=== PATIENT | male | born 1980 | race Caucasian/White ===

== ENCOUNTER 2020-02-21 17:12 | Emergency (ER) | payer SELFPAY ==
[2020-02-21 17:25] VITALS: BP 114/85; PULSE 102; TEMP 97.5; BMI 37.3
[2020-02-21] MEDS ORDERED: SODIUM CHLORIDE 1,000 ML IV STA (18:11)
[2020-02-21] MEDS ORDERED: KETOROLAC TROMETHAMINE 60 MG/2 ML VIAL IM ONE (18:11)
[2020-02-21] MEDS ORDERED: TAMSULOSIN HCL 0.4 MG CAP PO ONE (18:13)
[2020-02-21] MEDS ORDERED: KETOROLAC TROMETHAMINE 30 MG/1 ML VIAL IVPUSH ONE (18:20)
[2020-02-21] MEDS ORDERED: TAMSULOSIN HCL 0.4 MG CAP ONE (18:29)
[2020-02-21] MEDS ORDERED: KETOROLAC TROMETHAMINE 30 MG/1 ML VIAL ONE (18:29)
[2020-02-21 18:54] LABS: BASO % 0.3 % (0-2.0); EOS % 0.1 % (0-4.5); HEMATOCRIT 48.8 % (35.4-49); HEMOGLOBIN 16.2 GM/dL (11.7-16.9); LYMPH % 6.6 % (8-40); MCH 30.5 pg (25.7-33.7); MCHC 33.2 g/dl (32.0-35.9); MEAN CELL VOLUME 91.8 fl (80-96); MEAN PLT VOLUME 9.4 fl (7.5-11.1); MONO % 7.8 % (3.8-10.2); NEUT % 85.2 % (42.8-82.8); PLATELET COUNT 301 K/MM3 (134-434); RBC 5.32 M/mm3 (4.00-5.60); RDW 13.3 % (11.9-15.9)
[2020-02-21 19:18] LABS: POTASSIUM 4.1 mmol/L (3.5-5.1)
[2020-02-21 19:20] LABS: ALBUMIN 3.8 g/dl (3.4-5.0); CALCIUM 9.7 mg/dL (8.5-10.1)
[2020-02-21 19:25] LABS: BILIRUBIN,TOTAL 0.8 mg/dL (0.2-1); TOT PROT 7.7 g/dl (6.4-8.2)
[2020-02-21 20:18] LABS: ANISOCYTOSIS 0; MACROCYTOSIS 0; PLATELET ESTIMATE NORMAL
[2020-02-21] MEDS ORDERED: CEFAZOLIN 1 GM in DEXTROSE 5%-WATER - 50 ML IVPB ONE (20:18)
[2020-02-21] MEDS ORDERED: FAMOTIDINE 20 MG/50 ML IVPB 20 MG/50 ML MG IVPB ONE ×2 (20:18→21:08)
[2020-02-21] MEDS ORDERED: ACETAMINOPHEN 1000 MG/100 ML VIAL (NON FORMULARY) IVPB ONE (20:18)
[2020-02-21] MEDS ORDERED: PIPERACILLIN/TAZOB 3.375 GM 3.375 GM in DEXTROSE 5%-WATER - 50 ML IVPB ONE (20:33)
[2020-02-21 20:53] LABS: URINE APPEARANCE CLEAR; URINE BILIRUBIN NEGATIVE (NEGATIVE); URINE COLOR YELLOW; URINE GLUCOSE (UA) NEGATIVE (NEGATIVE); URINE KETONE NEGATIVE (NEGATIVE); URINE LEUK ESTERASE NEGATIVE (NEGATIVE); URINE NITRITE NEGATIVE (NEGATIVE); URINE PROTEIN NEGATIVE (NEGATIVE)
[2020-02-21] MEDS ORDERED: ACETAMINOPHEN INJECTION 100 ML IVPB ONE (21:07)
[2020-02-21] MEDS ORDERED: PIPERACILLIN/TAZOB 3.375 GM 3.375 GM/50 ML BAG IVPB ONE (21:07)
== END 2020-02-21 23:30 | disposition home or self-care (01) ==
LOC: JER 17:12
PROC: 3E0337Z Introduction of Electrolytic and Water Balance Substance into Peripheral Vein, Percutaneous Approach (ICD-10-PCS; principal; 2020-02-21)
PROC: 3E033GC Introduction of Other Therapeutic Substance into Peripheral Vein, Percutaneous Approach (ICD-10-PCS; principal; 2020-02-21)
DX: K57.92 Diverticulitis of intestine, part unspecified, without perforation or abscess without bleeding (principal)
CPT/HCPCS: 36415; 74176-TC; 80053; 81003; 83690; 85025; 87086; 87491; 87591; 96365; 96367; 96375; 99285-25; J0131

== ENCOUNTER 2021-05-03 04:42 | Inpatient (IN) | payer OTHER ==
[2021-05-02 12:09] VITALS: BMI 44.6
[2021-05-03] MEDS ORDERED: ERTAPENEM SODIUM 1 GM in SODIUM CHLORIDE 50 ML IVPB ONE (10:00)
[2021-05-03] MEDS ORDERED: ALVIMOPAN 12 MG CAP PO ONE (10:00)
[2021-05-03] MEDS ORDERED: BUPIVACAINE HCL/PF 0.5% (5MG/ML) 10 ML VIAL ONE (10:28)
[2021-05-03] MEDS ORDERED: BUPIVACAINE LIPOSOME/PF (EXPAREL) 266 MG/20 ML VIAL ONE (10:28)
[2021-05-03] MEDS ORDERED: MIDAZOLAM HCL 2 MG/2 ML SINGLE DOSE VIAL ONE ×2 (10:29)
[2021-05-03] MEDS ORDERED: LIDOCAINE HCL/PF 2% SDV 5ML VIAL ONE ×2 (11:43→15:32)
[2021-05-03] MEDS ORDERED: PROPOFOL 20 ML ONE ×2 (11:43)
[2021-05-03] MEDS ORDERED: ROCURONIUM BROMIDE 50 MG/5 ML SYRINGE ONE ×3 (11:43→15:11)
[2021-05-03] MEDS ORDERED: ERTAPENEM SODIUM 1 GM VIAL IVPB ONE (12:15)
[2021-05-03] MEDS ORDERED: SODIUM CHLORIDE 0.9% P/F 10 ML VIAL IJ ONE (13:17)
[2021-05-03] MEDS ORDERED: METOPROLOL TARTRATE 5 MG/5 ML VIAL ONE ×2 (15:41→17:12)
[2021-05-03] MEDS ORDERED: ESMOLOL HCL 100,000 MCG/10 ML VIAL ONE (15:41)
[2021-05-03] MEDS ORDERED: HYDROmorphone HCl 2 MG/ML VIAL ONE ×2 (15:41→17:13)
[2021-05-03] MEDS ORDERED: ONDANSETRON 4 MG/2 ML VIAL IVPUSH PRN (16:22)
[2021-05-03] MEDS ORDERED: HYDROmorphone HCl 2 MG/ML VIAL IVPUSH PRN ×2 (16:22→16:24)
[2021-05-03] MEDS ORDERED: LACTATED RINGERS SOLUTION 1,000 ML IV SCH (16:30)
[2021-05-03] MEDS ORDERED: DESFLURANE GAS 240 ML BOTTLE IH ONE (16:58)
[2021-05-03] MEDS ORDERED: HYDROmorphone *PCA* 10MG/50ML DISP.SYRIN ONE (18:03)
[2021-05-03] MEDS: ACETAMINOPHEN 1000 MG/100 ML BAG IVPB SCH (18:35)
[2021-05-03] MEDS ORDERED: ACETAMINOPHEN INJECTION 100 ML IVPB ONE (18:47)
[2021-05-03 18:48] LABS: BASO % 0.2 % (0-2.0); HEMATOCRIT 47.1 % (35.4-49); HEMOGLOBIN 15.6 GM/dL (11.7-16.9); LYMPH % 10.3 % (8-40); MCH 30.2 pg (25.7-33.7); MCHC 33.2 g/dl (32.0-35.9); MEAN CELL VOLUME 90.8 fl (80-96); MEAN PLT VOLUME 9.2 fl (7.5-11.1); MONO % 8.2 % (3.8-10.2); NEUT % 81.3 % (42.8-82.8); PLATELET COUNT 260 10^3/uL (134-434); RBC 5.18 M/mm3 (4.00-5.60); WHITE BLOOD COUNT 17.3 K/mm3 (4.0-10.0)
[2021-05-03 19:04] LABS: CALCIUM 8.2 mg/dL (8.5-10.1)
[2021-05-03 19:05] LABS: BLOOD UREA NITROGEN 15.8 mg/dL (7-18)
[2021-05-03 19:08] LABS: CREATININE 1.2 mg/dL (0.55-1.3)
[2021-05-03 19:10] LABS: BILIRUBIN,TOTAL 0.9 mg/dL (0.2-1); TOT PROT 6.1 g/dl (6.4-8.2)
[2021-05-03] MEDS: LACTATED RINGERS SOLUTION 1,000 ML IV SCH (19:45)
[2021-05-03] MEDS ORDERED: HEPARIN NA (PORCINE) 5,000 UNITS/ML 1ML VIAL SQ SCH (22:00)
[2021-05-03] MEDS ORDERED: INSULIN SLIDING SCALE (NOVOLOG) 1 VIAL SQ SCH (22:00)
[2021-05-03] MEDS: HYDROmorphone *PCA* 10MG/50ML DISP.SYRIN PCA SCH (22:22)
[2021-05-03] MEDS: INSULIN SLIDING SCALE (NOVOLOG) 1 VIAL SQ SCH (22:23)
[2021-05-04] MEDS ORDERED: HYDROCHLOROTHIAZIDE 12.5 MG CAPSULE (FP) PO ONE (02:26)
[2021-05-04] MEDS: LACTATED RINGERS SOLUTION 1,000 ML IV SCH ×2 (03:45→20:25)
[2021-05-04] MEDS: ACETAMINOPHEN 1000 MG/100 ML BAG IVPB SCH ×4 (06:02→23:21)
[2021-05-04] MEDS: INSULIN SLIDING SCALE (NOVOLOG) 1 VIAL SQ SCH ×4 (06:37→21:32)
[2021-05-04] MEDS: ALVIMOPAN 12 MG CAP PO SCH ×2 (06:37→19:43)
[2021-05-04] MEDS ORDERED: metFORMIN HCL 500 MG TABLET (FP) PO SCH (07:00)
[2021-05-04 07:20] LABS: BASO % 0.3 % (0-2.0); EOS % 0.1 % (0-4.5); HEMATOCRIT 46.8 % (35.4-49); HEMOGLOBIN 15.3 GM/dL (11.7-16.9); LYMPH % 20.3 % (8-40); MCH 29.9 pg (25.7-33.7); MCHC 32.6 g/dl (32.0-35.9); MEAN CELL VOLUME 91.7 fl (80-96); MEAN PLT VOLUME 9.7 fl (7.5-11.1); MONO % 7.9 % (3.8-10.2); NEUT % 71.4 % (42.8-82.8); PLATELET COUNT 246 10^3/uL (134-434); RDW 14.3 % (11.9-15.9); WHITE BLOOD COUNT 13.9 K/mm3 (4.0-10.0)
[2021-05-04 07:23] LABS: CALCIUM 8.6 mg/dL (8.5-10.1); MAGNESIUM 1.8 mg/dL (1.8-2.4)
[2021-05-04 07:24] LABS: BLOOD UREA NITROGEN 15.8 mg/dL (7-18)
[2021-05-04 07:27] LABS: PHOSPHOROUS 4.5 mg/dL (2.5-4.9)
[2021-05-04 07:29] LABS: CREATININE 1.5 mg/dL (0.55-1.3)
[2021-05-04 07:39] LABS: BILIRUBIN,TOTAL 1.3 mg/dL (0.2-1)
[2021-05-04] MEDS: HYDROCHLOROTHIAZIDE 12.5 MG CAPSULE (FP) PO SCH (09:37)
[2021-05-04] MEDS: metoPROLOL SUCCINATE 25 MG TAB.SR.24H (FP) PO SCH (09:37)
[2021-05-04] MEDS: LOSARTAN POTASSIUM 50 MG TABLET PO SCH (09:37)
[2021-05-04] MEDS: HEPARIN NA (PORCINE) 5,000 UNITS/ML 1ML VIAL SQ SCH ×3 (09:37→21:17)
[2021-05-04] MEDS ORDERED: LOSARTAN 50MG/HCTZ 12.5MG 1 TAB PO SCH ×2 (10:00)
[2021-05-04] MEDS ORDERED: ENOXAPARIN NA (PORCINE) 40 MG/0.4 ML DISP.SYRIN SQ SCH (10:00)
[2021-05-04] MEDS ORDERED: cefTRIAXone SODIUM 1 GM VIAL ONE (10:25)
[2021-05-04] MEDS ORDERED: DEXTROSE 5%-WATER - 50 ML IVPB ONE (10:25)
[2021-05-04] MEDS: HYDROmorphone *PCA* 10MG/50ML DISP.SYRIN PCA SCH (10:28)
[2021-05-04] MEDS: CEFTRIAXONE 1 GM in DEXTROSE 5%-WATER - 50 ML IVPB SCH (10:30)
[2021-05-04] MEDS: metroNIDAZOLE 250 MG TABLET PO SCH ×2 (14:41→21:16)
[2021-05-05] MEDS: ACETAMINOPHEN 1000 MG/100 ML BAG IVPB SCH ×3 (05:01→17:29)
[2021-05-05] MEDS: HEPARIN NA (PORCINE) 5,000 UNITS/ML 1ML VIAL SQ SCH ×3 (05:01→21:41)
[2021-05-05] MEDS: metroNIDAZOLE 500 MG TABLET PO SCH ×3 (05:43→21:41)
[2021-05-05] MEDS: INSULIN SLIDING SCALE (NOVOLOG) 1 VIAL SQ SCH ×4 (06:09→21:47)
[2021-05-05 07:19] LABS: HEMATOCRIT 42.7 % (35.4-49); HEMOGLOBIN 14.9 GM/dL (11.7-16.9); MCH 31.6 pg (25.7-33.7); MCHC 34.8 g/dl (32.0-35.9); MEAN CELL VOLUME 90.8 fl (80-96); MEAN PLT VOLUME 9.4 fl (7.5-11.1); PLATELET COUNT 221 10^3/uL (134-434); RDW 13.7 % (11.9-15.9); WHITE BLOOD COUNT 16.8 K/mm3 (4.0-10.0)
[2021-05-05 08:09] LABS: BLOOD UREA NITROGEN 13.8 mg/dL (7-18); MAGNESIUM 1.7 mg/dL (1.8-2.4)
[2021-05-05 08:12] LABS: CREATININE 1.6 mg/dL (0.55-1.3); PHOSPHOROUS 2.9 mg/dL (2.5-4.9)
[2021-05-05] MEDS: HYDROmorphone *PCA* 10MG/50ML DISP.SYRIN PCA SCH ×3 (08:12→19:12)
[2021-05-05] MEDS ORDERED: cefTRIAXone SODIUM 1 GM VIAL ONE (08:20)
[2021-05-05] MEDS ORDERED: DEXTROSE 5%-WATER - 50 ML IVPB ONE (08:20)
[2021-05-05] MEDS: ALVIMOPAN 12 MG CAP PO SCH ×3 (08:31→19:08)
[2021-05-05] MEDS ORDERED: LACTATED RINGERS SOLUTION 1,000 ML IV SCH ×2 (08:50→18:56)
[2021-05-05] MEDS: CEFTRIAXONE 1 GM in DEXTROSE 5%-WATER - 50 ML IVPB SCH (09:00)
[2021-05-05] MEDS: metoPROLOL SUCCINATE 25 MG TAB.SR.24H (FP) PO SCH (09:00)
[2021-05-05] MEDS: HYDROCHLOROTHIAZIDE 12.5 MG CAPSULE (FP) PO SCH (09:00)
[2021-05-05] MEDS ORDERED: MAGNESIUM OXIDE 400 MG TABLET (FP) PO ONE (09:00)
[2021-05-05] MEDS: LOSARTAN POTASSIUM 50 MG TABLET PO SCH (09:00)
[2021-05-05] MEDS ORDERED: SODIUM CHLORIDE 1,000 ML IV SCH (10:00)
[2021-05-05] MEDS ORDERED: ACETAMINOPHEN 500 MG TABLET (FP) PO PRN (18:53)
[2021-05-05] MEDS ORDERED: traMADol HCL 50 MG TABLET PO PRN (18:54)
[2021-05-05] MEDS: SODIUM CHLORIDE 1,000 ML IV SCH (19:38)
[2021-05-05] MEDS ORDERED: INSULIN (NOVOLOG) ASPART 100 UNITS/ML 10ML VIAL ONE (21:01)
[2021-05-06] MEDS ORDERED: MELATONIN 5 MG TABLETS PO ONE (03:04)
[2021-05-06] MEDS: HEPARIN NA (PORCINE) 5,000 UNITS/ML 1ML VIAL SQ SCH ×3 (05:42→21:49)
[2021-05-06] MEDS: metroNIDAZOLE 500 MG TABLET PO SCH ×2 (05:42→16:51)
[2021-05-06] MEDS: SODIUM CHLORIDE 1,000 ML IV SCH ×2 (05:52→20:05)
[2021-05-06] MEDS: ALVIMOPAN 12 MG CAP PO SCH (06:09)
[2021-05-06] MEDS: INSULIN SLIDING SCALE (NOVOLOG) 1 VIAL SQ SCH ×4 (06:09→21:31)
[2021-05-06] MEDS ORDERED: cefTRIAXone SODIUM 1 GM VIAL ONE (09:31)
[2021-05-06] MEDS ORDERED: DEXTROSE 5%-WATER - 50 ML IVPB ONE (09:31)
[2021-05-06 09:33] LABS: BASO % 0.6 % (0-2.0); HEMOGLOBIN 14.3 GM/dL (11.7-16.9); LYMPH % 13.9 % (8-40); MCH 30.8 pg (25.7-33.7); MCHC 34.1 g/dl (32.0-35.9); MEAN CELL VOLUME 90.5 fl (80-96); MEAN PLT VOLUME 9.4 fl (7.5-11.1); MONO % 8.5 % (3.8-10.2); PLATELET COUNT 245 10^3/uL (134-434); RBC 4.65 M/mm3 (4.00-5.60); RDW 13.9 % (11.9-15.9); WHITE BLOOD COUNT 18.6 K/mm3 (4.0-10.0)
[2021-05-06 09:48] LABS: CALCIUM 9.1 mg/dL (8.5-10.1)
[2021-05-06 09:49] LABS: BLOOD UREA NITROGEN 15.7 mg/dL (7-18)
[2021-05-06 09:52] LABS: CREATININE 1.5 mg/dL (0.55-1.3)
[2021-05-06] MEDS ORDERED: LOSARTAN POTASSIUM 50 MG TABLET PO SCH (10:00)
[2021-05-06] MEDS ORDERED: CEFTRIAXONE 1 GM in DEXTROSE 5%-WATER - 50 ML IVPB SCH (10:00)
[2021-05-06] MEDS ORDERED: metoPROLOL SUCCINATE 25 MG TAB.SR.24H (FP) PO SCH (10:00)
[2021-05-06] MEDS ORDERED: LOSARTAN 50MG/HCTZ 12.5MG 1 TAB PO SCH (10:00)
[2021-05-06] MEDS ORDERED: metroNIDAZOLE 250 MG TABLET PO SCH ×3 (14:59→22:00)
[2021-05-06] MEDS ORDERED: ROCURONIUM BROMIDE 50 MG/5 ML SYRINGE ONE (16:41)
[2021-05-06] MEDS ORDERED: SUCCINYLCHOLINE CHLORIDE 200 MG/10 ML SYRINGE ONE (16:42)
[2021-05-06] MEDS ORDERED: PROPOFOL 20 ML ONE ×2 (16:42→16:43)
[2021-05-06] MEDS ORDERED: MIDAZOLAM HCL 2 MG/2 ML SINGLE DOSE VIAL ONE (16:42)
[2021-05-06] MEDS ORDERED: CEFOXITIN SODIUM 2 GM IVPB ONE (17:09)
[2021-05-06] MEDS ORDERED: cefOXitin SODIUM 1 GM VIAL (RESTRICTED TO ID) IVPB ONE (17:12)
[2021-05-06] MEDS ORDERED: NEOSTIGMINE METHYLSULFATE 0.5 MG/ML - 10 ML MDV ONE (17:33)
[2021-05-06] MEDS ORDERED: LIDOCAINE HCL/PF 2% SDV 5ML VIAL ONE (17:33)
[2021-05-06] MEDS ORDERED: LIDOCAINE HCL 2% (20ML MULTI-DOSE VIAL) ONE (17:34)
[2021-05-06] MEDS ORDERED: BUPIVACAINE HCL/PF 0.25% (2.5MG/ML) 10 ML VIAL ONE (18:01)
[2021-05-06] MEDS ORDERED: ACETAMINOPHEN 1000 MG/100 ML BAG IVPB PRN (18:32)
[2021-05-06] MEDS ORDERED: ONDANSETRON 4 MG/2 ML VIAL IVPUSH PRN (18:32)
[2021-05-06] MEDS ORDERED: ACETAMINOPHEN 500 MG TABLET (FP) PO PRN (18:32)
[2021-05-06] MEDS ORDERED: traMADol HCL 50 MG TABLET PO PRN (18:32)
[2021-05-06] MEDS ORDERED: LACTATED RINGERS SOLUTION 1,000 ML IV SCH (18:45)
[2021-05-06] MEDS ORDERED: ACETAMINOPHEN INJECTION 100 ML IVPB ONE (19:03)
[2021-05-06] MEDS ORDERED: ACETAMINOPHEN 1000 MG/100 ML BAG IVPB ONE (19:05)
[2021-05-06] MEDS: morphine SULFATE 4 MG/ML VIAL IVPUSH PRN (22:05)
[2021-05-07] MEDS: ACETAMINOPHEN 1000 MG/100 ML BAG IVPB SCH ×3 (00:11→13:35)
[2021-05-07] MEDS: morphine SULFATE 4 MG/ML VIAL IVPUSH PRN ×4 (02:37→19:19)
[2021-05-07] MEDS ORDERED: MELATONIN 5 MG TABLETS PO ONE (04:16)
[2021-05-07] MEDS: SODIUM CHLORIDE 1,000 ML IV SCH ×2 (05:59→18:06)
[2021-05-07] MEDS: HEPARIN NA (PORCINE) 5,000 UNITS/ML 1ML VIAL SQ SCH ×3 (06:00→22:06)
[2021-05-07] MEDS: INSULIN SLIDING SCALE (NOVOLOG) 1 VIAL SQ SCH ×4 (06:04→22:05)
[2021-05-07 09:04] LABS: BASO % 0.4 % (0-2.0); EOS % 0.2 % (0-4.5); HEMATOCRIT 40.5 % (35.4-49); HEMOGLOBIN 13.6 GM/dL (11.7-16.9); LYMPH % 13.7 % (8-40); MCH 30.8 pg (25.7-33.7); MCHC 33.6 g/dl (32.0-35.9); MEAN CELL VOLUME 91.6 fl (80-96); MEAN PLT VOLUME 8.9 fl (7.5-11.1); NEUT % 74.7 % (42.8-82.8); PLATELET COUNT 309 10^3/uL (134-434); RBC 4.42 M/mm3 (4.00-5.60); RDW 13.8 % (11.9-15.9); WHITE BLOOD COUNT 16.5 K/mm3 (4.0-10.0)
[2021-05-07 09:29] LABS: ALBUMIN 2.5 g/dl (3.4-5.0)
[2021-05-07 09:30] LABS: BLOOD UREA NITROGEN 19.9 mg/dL (7-18)
[2021-05-07 09:32] LABS: CREATININE 1.7 mg/dL (0.55-1.3)
[2021-05-07 09:33] LABS: TOT PROT 6.2 g/dl (6.4-8.2)
[2021-05-07 09:34] LABS: BILIRUBIN,TOTAL 1.2 mg/dL (0.2-1)
[2021-05-07] MEDS: metoPROLOL SUCCINATE 25 MG TAB.SR.24H (FP) PO SCH (11:10)
[2021-05-07] MEDS: LOSARTAN 50MG/HCTZ 12.5MG 1 TAB PO SCH (11:10)
[2021-05-08] MEDS: morphine SULFATE 4 MG/ML VIAL IVPUSH PRN ×2 (01:40→10:35)
[2021-05-08] MEDS: MELATONIN 5 MG TABLETS PO PRN (01:41)
[2021-05-08] MEDS: HEPARIN NA (PORCINE) 5,000 UNITS/ML 1ML VIAL SQ SCH ×3 (05:50→21:30)
[2021-05-08] MEDS: INSULIN SLIDING SCALE (NOVOLOG) 1 VIAL SQ SCH ×4 (06:09→21:29)
[2021-05-08 09:07] LABS: BASO % 0.8 % (0-2.0); EOS % 0.7 % (0-4.5); HEMATOCRIT 39.7 % (35.4-49); HEMOGLOBIN 13.6 GM/dL (11.7-16.9); LYMPH % 15.9 % (8-40); MCH 31.1 pg (25.7-33.7); MCHC 34.2 g/dl (32.0-35.9); MEAN CELL VOLUME 91.1 fl (80-96); MEAN PLT VOLUME 8.5 fl (7.5-11.1); MONO % 11.4 % (3.8-10.2); NEUT % 71.2 % (42.8-82.8); PLATELET COUNT 318 10^3/uL (134-434); RBC 4.36 M/mm3 (4.00-5.60); WHITE BLOOD COUNT 14.9 K/mm3 (4.0-10.0)
[2021-05-08 09:24] LABS: ALBUMIN 2.6 g/dl (3.4-5.0); BLOOD UREA NITROGEN 21.3 mg/dL (7-18); CALCIUM 8.3 mg/dL (8.5-10.1)
[2021-05-08 09:27] LABS: CREATININE 1.5 mg/dL (0.55-1.3)
[2021-05-08 09:29] LABS: BILIRUBIN,TOTAL 0.7 mg/dL (0.2-1); TOT PROT 6.2 g/dl (6.4-8.2)
[2021-05-08 10:02] LABS: ANISOCYTOSIS 0; HELMET CELLS 0; HOWELL-JOLLY BODIES 0; MACROCYTOSIS 0; OVALOCYTE 0; ROULEAU 0; SICKELED CELLS 0; TARGET CELLS 0; TEAR DROP CELLS 0; TOXIC GRANULATION 0
[2021-05-08] MEDS: LOSARTAN 50MG/HCTZ 12.5MG 1 TAB PO SCH (10:38)
[2021-05-08] MEDS: metoPROLOL SUCCINATE 25 MG TAB.SR.24H (FP) PO SCH (10:38)
[2021-05-08] MEDS: SODIUM CHLORIDE 1,000 ML IV SCH ×2 (12:52→18:29)
[2021-05-08 14:56] LABS: EPI CELLS 1 /uL (0-25.1); HYALINE CASTS 0 /uL (0-3.1); URINE APPEARANCE CLEAR; URINE BACTERIA 8 /uL (0-1359); URINE BILIRUBIN NEGATIVE (NEGATIVE); URINE COLOR YELLOW; URINE GLUCOSE (UA) NEGATIVE (NEGATIVE); URINE KETONE TRACE (NEGATIVE); URINE LEUK ESTERASE TRACE (NEGATIVE); URINE NITRITE NEGATIVE (NEGATIVE); URINE PROTEIN NEGATIVE (NEGATIVE); URINE RBC 5 /uL (0-23.9); URINE UROBILINOGEN 0.2 mg/dL (0.2-1.0); URINE WBC 2 /uL (0-25.8)
[2021-05-08 15:01] LABS: URINE UREA NITROGEN 1139 mg/dL (350-1000)
[2021-05-09] MEDS: morphine SULFATE 4 MG/ML VIAL IVPUSH PRN (03:50)
[2021-05-09] MEDS: HEPARIN NA (PORCINE) 5,000 UNITS/ML 1ML VIAL SQ SCH ×3 (05:42→21:26)
[2021-05-09] MEDS ORDERED: ACETAMINOPHEN 1000 MG/100 ML BAG IVPB PRN (06:07)
[2021-05-09] MEDS: INSULIN SLIDING SCALE (NOVOLOG) 1 VIAL SQ SCH ×4 (06:08→21:25)
[2021-05-09] MEDS: DOCUSATE SODIUM 100 MG CAPSULE (FP) PO SCH ×3 (06:23→21:26)
[2021-05-09] MEDS ORDERED: guaiFENesin/D-METHORPHAN HB 10 ML UNIT-DOSE CUPS PO PRN (06:37)
[2021-05-09 09:17] LABS: BASO % 0.7 % (0-2.0); EOS % 1.6 % (0-4.5); HEMATOCRIT 39.4 % (35.4-49); HEMOGLOBIN 13.2 GM/dL (11.7-16.9); LYMPH % 18.4 % (8-40); MCH 30.2 pg (25.7-33.7); MCHC 33.4 g/dl (32.0-35.9); MEAN CELL VOLUME 90.4 fl (80-96); MEAN PLT VOLUME 8.4 fl (7.5-11.1); MONO % 10.9 % (3.8-10.2); NEUT % 68.4 % (42.8-82.8); PLATELET COUNT 367 10^3/uL (134-434); RBC 4.36 M/mm3 (4.00-5.60); RDW 13.8 % (11.9-15.9); WHITE BLOOD COUNT 14.1 K/mm3 (4.0-10.0)
[2021-05-09 09:41] LABS: CALCIUM 8.7 mg/dL (8.5-10.1)
[2021-05-09 09:42] LABS: ALBUMIN 2.6 g/dl (3.4-5.0); BLOOD UREA NITROGEN 20.2 mg/dL (7-18)
[2021-05-09 09:45] LABS: CREATININE 1.4 mg/dL (0.55-1.3)
[2021-05-09 09:46] LABS: TOT PROT 6.5 g/dl (6.4-8.2)
[2021-05-09 09:47] LABS: BILIRUBIN,TOTAL 0.8 mg/dL (0.2-1)
[2021-05-09] MEDS ORDERED: SODIUM CHLORIDE 1,000 ML IV SCH (10:38)
[2021-05-09] MEDS: metoPROLOL SUCCINATE 25 MG TAB.SR.24H (FP) PO SCH (10:58)
[2021-05-09] MEDS: LOSARTAN 50MG/HCTZ 12.5MG 1 TAB PO SCH (10:58)
[2021-05-09] MEDS: ACETAMINOPHEN 500 MG TABLET (FP) PO PRN ×2 (14:54→21:28)
[2021-05-09] MEDS ORDERED: metoPROLOL SUCCINATE 25 MG TAB.SR.24H (FP) PO ONE (18:25)
[2021-05-09 19:12] LABS: MAGNESIUM 2.2 mg/dL (1.8-2.4)
[2021-05-09] MEDS: SODIUM CHLORIDE 0.45% 1,000 ML IV SCH (19:16)
[2021-05-09 19:41] LABS: N-TERMINAL BNP 29.9 pg/ml (5-125)
[2021-05-09] MEDS: MELATONIN 5 MG TABLETS PO PRN (21:26)
[2021-05-10] MEDS: DOCUSATE SODIUM 100 MG CAPSULE (FP) PO SCH ×3 (05:09→21:24)
[2021-05-10] MEDS: HEPARIN NA (PORCINE) 5,000 UNITS/ML 1ML VIAL SQ SCH ×3 (05:09→21:24)
[2021-05-10] MEDS: ACETAMINOPHEN 500 MG TABLET (FP) PO PRN (05:32)
[2021-05-10] MEDS: SODIUM CHLORIDE 0.45% 1,000 ML IV SCH ×2 (06:08→18:56)
[2021-05-10] MEDS: INSULIN SLIDING SCALE (NOVOLOG) 1 VIAL SQ SCH ×4 (06:41→21:25)
[2021-05-10] MEDS: LOSARTAN 50MG/HCTZ 12.5MG 1 TAB PO SCH (09:12)
[2021-05-10 12:29] LABS: HEMATOCRIT 40.3 % (35.4-49); HEMOGLOBIN 13.7 GM/dL (11.7-16.9); MCH 30.7 pg (25.7-33.7); MEAN CELL VOLUME 90.3 fl (80-96); MEAN PLT VOLUME 8.3 fl (7.5-11.1); PLATELET COUNT 363 10^3/uL (134-434); RBC 4.46 M/mm3 (4.00-5.60); RDW 13.8 % (11.9-15.9); WHITE BLOOD COUNT 17.6 K/mm3 (4.0-10.0)
[2021-05-10 12:34] LABS: BLOOD UREA NITROGEN 20.4 mg/dL (7-18); CALCIUM 9.1 mg/dL (8.5-10.1)
[2021-05-10 12:35] LABS: ALBUMIN 2.7 g/dl (3.4-5.0)
[2021-05-10 12:38] LABS: CREATININE 1.4 mg/dL (0.55-1.3)
[2021-05-10 12:39] LABS: BILIRUBIN,TOTAL 0.5 mg/dL (0.2-1); TOT PROT 6.7 g/dl (6.4-8.2)
[2021-05-10] MEDS: traMADol HCL 50 MG TABLET PO PRN (13:13)
[2021-05-10] MEDS ORDERED: PIPERACILLIN/TAZOB 4.5 GM 4.5 GM in DEXTROSE 5%-WATER 100 ML IVPB ONE (22:45)
[2021-05-10] MEDS ORDERED: DEXTROSE 5%-WATER 100 ML IVPB ONE (22:58)
[2021-05-10] MEDS ORDERED: PIPERACILLIN/TAZOBACTAM 4.5 GM VIAL IVPB ONE (22:58)
[2021-05-11] MEDS: DOCUSATE SODIUM 100 MG CAPSULE (FP) PO SCH ×3 (05:37→21:15)
[2021-05-11] MEDS: HEPARIN NA (PORCINE) 5,000 UNITS/ML 1ML VIAL SQ SCH ×3 (05:37→21:15)
[2021-05-11] MEDS: SODIUM CHLORIDE 0.45% 1,000 ML IV SCH (05:37)
[2021-05-11] MEDS: INSULIN SLIDING SCALE (NOVOLOG) 1 VIAL SQ SCH ×4 (06:01→21:21)
[2021-05-11] MEDS: traMADol HCL 50 MG TABLET PO PRN (06:25)
[2021-05-11 07:53] LABS: BASO % 0.7 % (0-2.0); EOS % 2.7 % (0-4.5); HEMATOCRIT 41.4 % (35.4-49); LYMPH % 17.2 % (8-40); MCH 30.3 pg (25.7-33.7); MCHC 33.8 g/dl (32.0-35.9); MEAN CELL VOLUME 89.4 fl (80-96); MEAN PLT VOLUME 8.1 fl (7.5-11.1); MONO % 8.5 % (3.8-10.2); NEUT % 70.9 % (42.8-82.8); PLATELET COUNT 359 10^3/uL (134-434); RBC 4.63 M/mm3 (4.00-5.60); RDW 13.8 % (11.9-15.9); WHITE BLOOD COUNT 13.6 K/mm3 (4.0-10.0)
[2021-05-11 07:59] LABS: CALCIUM 8.8 mg/dL (8.5-10.1)
[2021-05-11 08:00] LABS: ALBUMIN 2.8 g/dl (3.4-5.0); BLOOD UREA NITROGEN 18.4 mg/dL (7-18)
[2021-05-11 08:02] LABS: CREATININE 1.4 mg/dL (0.55-1.3)
[2021-05-11 08:04] LABS: BILIRUBIN,TOTAL 0.7 mg/dL (0.2-1); TOT PROT 6.7 g/dl (6.4-8.2)
[2021-05-11] MEDS: amLODIPine BESYLATE 5 MG TABLET (FP) PO SCH ×2 (09:19→11:18)
[2021-05-11] MEDS ORDERED: PIPERACILLIN/TAZOB 3.375 GM 3.375 GM in DEXTROSE 5%-WATER - 50 ML IVPB SCH (10:00)
[2021-05-11] MEDS ORDERED: PIPERACILLIN/TAZOBACTAM 3.375 GM VIAL IVPB ONE ×2 (11:23→17:14)
[2021-05-11] MEDS ORDERED: DEXTROSE 5%-WATER - 50 ML IVPB ONE ×2 (11:23→17:14)
[2021-05-11] MEDS: LACTATED RINGERS SOLUTION 1,000 ML/1,000 ML INFUS.BAG IV SCH (16:22)
[2021-05-11] MEDS: PIPERACILLIN/TAZOB 3.375 GM 3.375 GM in DEXTROSE 5%-WATER - 50 ML IVPB SCH (17:22)
[2021-05-12] MEDS ORDERED: DEXTROSE 5%-WATER - 50 ML IVPB ONE ×3 (00:24→16:21)
[2021-05-12] MEDS ORDERED: PIPERACILLIN/TAZOBACTAM 3.375 GM VIAL IVPB ONE ×3 (00:24→16:21)
[2021-05-12] MEDS: traMADol HCL 50 MG TABLET PO PRN ×2 (00:47→18:32)
[2021-05-12] MEDS: LACTATED RINGERS SOLUTION 1,000 ML/1,000 ML INFUS.BAG IV SCH ×3 (00:49→16:52)
[2021-05-12] MEDS: PIPERACILLIN/TAZOB 3.375 GM 3.375 GM in DEXTROSE 5%-WATER - 50 ML IVPB SCH ×3 (01:02→18:21)
[2021-05-12] MEDS: HEPARIN NA (PORCINE) 5,000 UNITS/ML 1ML VIAL SQ SCH ×3 (05:46→21:34)
[2021-05-12] MEDS: DOCUSATE SODIUM 100 MG CAPSULE (FP) PO SCH ×3 (05:46→21:34)
[2021-05-12] MEDS: INSULIN SLIDING SCALE (NOVOLOG) 1 VIAL SQ SCH ×4 (06:22→21:46)
[2021-05-12] MEDS: amLODIPine BESYLATE 5 MG TABLET (FP) PO SCH (09:53)
[2021-05-12 14:28] LABS: BLOOD UREA NITROGEN 20.7 mg/dL (7-18); CALCIUM 8.6 mg/dL (8.5-10.1)
[2021-05-12 14:37] LABS: CREATININE 1.6 mg/dL (0.55-1.3)
[2021-05-12 15:54] LABS: BASO % 0.8 % (0-2.0); EOS % 4.1 % (0-4.5); HEMATOCRIT 40.4 % (35.4-49); HEMOGLOBIN 13.7 GM/dL (11.7-16.9); LYMPH % 20.9 % (8-40); MCH 30.4 pg (25.7-33.7); MEAN CELL VOLUME 89.7 fl (80-96); MEAN PLT VOLUME 7.8 fl (7.5-11.1); MONO % 8.9 % (3.8-10.2); NEUT % 65.3 % (42.8-82.8); PLATELET COUNT 396 10^3/uL (134-434); RDW 13.9 % (11.9-15.9); WHITE BLOOD COUNT 15.1 K/mm3 (4.0-10.0)
[2021-05-12] MEDS ORDERED: ACETAMINOPHEN 1000 MG/100 ML BAG IVPB ONE (20:15)
[2021-05-13] MEDS ORDERED: ONDANSETRON 4 MG/2 ML VIAL IVPUSH PRN (00:04)
[2021-05-13] MEDS: MELATONIN 5 MG TABLETS PO PRN (00:15)
[2021-05-13] MEDS ORDERED: PIPERACILLIN/TAZOBACTAM 3.375 GM VIAL IVPB ONE ×3 (02:03→18:26)
[2021-05-13] MEDS ORDERED: DEXTROSE 5%-WATER - 50 ML IVPB ONE ×3 (02:04→18:27)
[2021-05-13] MEDS: PIPERACILLIN/TAZOB 3.375 GM 3.375 GM in DEXTROSE 5%-WATER - 50 ML IVPB SCH ×3 (02:13→18:30)
[2021-05-13] MEDS: LACTATED RINGERS SOLUTION 1,000 ML/1,000 ML INFUS.BAG IV SCH ×2 (02:13→18:30)
[2021-05-13] MEDS ORDERED: ACETAMINOPHEN 1000 MG/100 ML BAG IVPB PRN (02:14)
[2021-05-13] MEDS: DOCUSATE SODIUM 100 MG CAPSULE (FP) PO SCH ×3 (05:19→22:11)
[2021-05-13] MEDS: HEPARIN NA (PORCINE) 5,000 UNITS/ML 1ML VIAL SQ SCH ×2 (05:19→14:55)
[2021-05-13] MEDS: INSULIN SLIDING SCALE (NOVOLOG) 1 VIAL SQ SCH ×4 (06:15→22:11)
[2021-05-13 08:08] LABS: BASO % 0.4 % (0-2.0); EOS % 1.2 % (0-4.5); HEMATOCRIT 39.5 % (35.4-49); HEMOGLOBIN 13.3 GM/dL (11.7-16.9); LYMPH % 18.3 % (8-40); MCH 30.2 pg (25.7-33.7); MCHC 33.8 g/dl (32.0-35.9); MEAN CELL VOLUME 89.5 fl (80-96); MEAN PLT VOLUME 8.7 fl (7.5-11.1); MONO % 8.8 % (3.8-10.2); NEUT % 71.3 % (42.8-82.8); PLATELET COUNT 390 10^3/uL (134-434); RBC 4.42 M/mm3 (4.00-5.60); WHITE BLOOD COUNT 15.8 K/mm3 (4.0-10.0)
[2021-05-13 08:19] LABS: BLOOD UREA NITROGEN 18.5 mg/dL (7-18); CALCIUM 8.3 mg/dL (8.5-10.1)
[2021-05-13 08:22] LABS: CREATININE 1.6 mg/dL (0.55-1.3)
[2021-05-13] MEDS: amLODIPine BESYLATE 5 MG TABLET (FP) PO SCH (09:44)
[2021-05-13] MEDS: traMADol HCL 50 MG TABLET PO PRN ×2 (10:06→23:12)
[2021-05-13] MEDS: SIMETHICONE 80 MG TAB.CHEW (FP) PO SCH ×3 (10:06→22:10)
[2021-05-13] MEDS: VANCOMYCIN/WATER BAGS 1,250 MG/250 ML BAG IVPB SCH (22:11)
[2021-05-14] MEDS ORDERED: DEXTROSE 5%-WATER - 50 ML IVPB ONE ×3 (01:45→17:13)
[2021-05-14] MEDS ORDERED: PIPERACILLIN/TAZOBACTAM 3.375 GM VIAL IVPB ONE ×3 (01:45→17:13)
[2021-05-14] MEDS: PIPERACILLIN/TAZOB 3.375 GM 3.375 GM in DEXTROSE 5%-WATER - 50 ML IVPB SCH ×3 (02:17→17:35)
[2021-05-14] MEDS: VANCOMYCIN/WATER BAGS 1,250 MG/250 ML BAG IVPB SCH ×2 (06:03→17:36)
[2021-05-14] MEDS: SIMETHICONE 80 MG TAB.CHEW (FP) PO SCH ×3 (06:03→21:06)
[2021-05-14] MEDS: DOCUSATE SODIUM 100 MG CAPSULE (FP) PO SCH ×2 (06:03→14:35)
[2021-05-14] MEDS: INSULIN SLIDING SCALE (NOVOLOG) 1 VIAL SQ SCH ×4 (06:10→21:07)
[2021-05-14] MEDS: traMADol HCL 50 MG TABLET PO PRN ×2 (09:16→21:06)
[2021-05-14] MEDS: amLODIPine BESYLATE 5 MG TABLET (FP) PO SCH (09:16)
[2021-05-14 10:02] LABS: BASO % 0.9 % (0-2.0); EOS % 2.7 % (0-4.5); HEMATOCRIT 40.2 % (35.4-49); HEMOGLOBIN 13.4 GM/dL (11.7-16.9); LYMPH % 15.8 % (8-40); MCH 30.4 pg (25.7-33.7); MCHC 33.3 g/dl (32.0-35.9); MEAN PLT VOLUME 8.7 fl (7.5-11.1); MONO % 6.9 % (3.8-10.2); NEUT % 73.7 % (42.8-82.8); PLATELET COUNT 409 10^3/uL (134-434); RBC 4.42 M/mm3 (4.00-5.60); RDW 13.9 % (11.9-15.9)
[2021-05-14 10:52] LABS: ALBUMIN 2.8 g/dl (3.4-5.0)
[2021-05-14 10:53] LABS: BLOOD UREA NITROGEN 18.7 mg/dL (7-18)
[2021-05-14 10:55] LABS: CREATININE 1.6 mg/dL (0.55-1.3)
[2021-05-14 10:57] LABS: BILIRUBIN,TOTAL 0.6 mg/dL (0.2-1); TOT PROT 6.8 g/dl (6.4-8.2)
[2021-05-14] MEDS: LACTATED RINGERS SOLUTION 1,000 ML/1,000 ML INFUS.BAG IV SCH ×2 (14:36→17:19)
[2021-05-14 21:30] LABS: PH,URINE 5.5 (5.0-8.0); URINE APPEARANCE CLEAR; URINE BILIRUBIN NEGATIVE (NEGATIVE); URINE COLOR YELLOW; URINE GLUCOSE (UA) NEGATIVE (NEGATIVE); URINE KETONE NEGATIVE (NEGATIVE); URINE LEUK ESTERASE NEGATIVE (NEGATIVE); URINE NITRITE NEGATIVE (NEGATIVE); URINE PROTEIN NEGATIVE (NEGATIVE); URINE UROBILINOGEN 0.2 mg/dL (0.2-1.0)
[2021-05-15] MEDS ORDERED: PIPERACILLIN/TAZOBACTAM 3.375 GM VIAL IVPB ONE ×3 (00:54→18:14)
[2021-05-15] MEDS ORDERED: DEXTROSE 5%-WATER - 50 ML IVPB ONE ×3 (00:55→18:14)
[2021-05-15] MEDS: PIPERACILLIN/TAZOB 3.375 GM 3.375 GM in DEXTROSE 5%-WATER - 50 ML IVPB SCH ×3 (01:06→18:19)
[2021-05-15] MEDS: VANCOMYCIN/WATER BAGS 1,250 MG/250 ML BAG IVPB SCH (05:26)
[2021-05-15] MEDS: SIMETHICONE 80 MG TAB.CHEW (FP) PO SCH ×3 (05:26→21:27)
[2021-05-15] MEDS: INSULIN SLIDING SCALE (NOVOLOG) 1 VIAL SQ SCH ×4 (06:07→21:28)
[2021-05-15 08:39] LABS: BASO % 0.6 % (0-2.0); HEMATOCRIT 42.7 % (35.4-49); HEMOGLOBIN 14.3 GM/dL (11.7-16.9); LYMPH % 15.8 % (8-40); MCH 30.2 pg (25.7-33.7); MCHC 33.4 g/dl (32.0-35.9); MEAN CELL VOLUME 90.2 fl (80-96); MEAN PLT VOLUME 8.6 fl (7.5-11.1); MONO % 6.7 % (3.8-10.2); NEUT % 73.9 % (42.8-82.8); PLATELET COUNT 378 10^3/uL (134-434); RBC 4.74 M/mm3 (4.00-5.60); RDW 13.8 % (11.9-15.9); WHITE BLOOD COUNT 17.1 K/mm3 (4.0-10.0)
[2021-05-15 09:10] LABS: CALCIUM 8.7 mg/dL (8.5-10.1)
[2021-05-15 09:14] LABS: BLOOD UREA NITROGEN 17.5 mg/dL (7-18); CREATININE 1.6 mg/dL (0.55-1.3)
[2021-05-15] MEDS: POLYETHYLENE GLYCOL (HEALTHYLAX) 3350 17 GM PACKET PO SCH ×2 (09:42→09:48)
[2021-05-15] MEDS: amLODIPine BESYLATE 5 MG TABLET (FP) PO SCH (09:42)
[2021-05-15] MEDS: LACTATED RINGERS SOLUTION 1,000 ML/1,000 ML INFUS.BAG IV SCH (18:20)
[2021-05-16] MEDS ORDERED: DEXTROSE 5%-WATER - 50 ML IVPB ONE ×3 (01:34→17:33)
[2021-05-16] MEDS ORDERED: PIPERACILLIN/TAZOBACTAM 3.375 GM VIAL IVPB ONE ×3 (01:34→17:33)
[2021-05-16] MEDS: PIPERACILLIN/TAZOB 3.375 GM 3.375 GM in DEXTROSE 5%-WATER - 50 ML IVPB SCH ×3 (01:40→17:45)
[2021-05-16] MEDS: LACTATED RINGERS SOLUTION 1,000 ML/1,000 ML INFUS.BAG IV SCH ×2 (05:35→16:28)
[2021-05-16] MEDS: SIMETHICONE 80 MG TAB.CHEW (FP) PO SCH ×3 (05:36→21:55)
[2021-05-16] MEDS: INSULIN SLIDING SCALE (NOVOLOG) 1 VIAL SQ SCH ×4 (07:32→21:58)
[2021-05-16 07:40] LABS: BASO % 0.6 % (0-2.0); EOS % 3.3 % (0-4.5); HEMATOCRIT 40.9 % (35.4-49); LYMPH % 20.1 % (8-40); MCH 30.9 pg (25.7-33.7); MCHC 34.3 g/dl (32.0-35.9); MEAN PLT VOLUME 8.6 fl (7.5-11.1); MONO % 6.8 % (3.8-10.2); NEUT % 69.2 % (42.8-82.8); PLATELET COUNT 403 10^3/uL (134-434); RBC 4.54 M/mm3 (4.00-5.60); RDW 14.1 % (11.9-15.9)
[2021-05-16 08:02] LABS: CALCIUM 9.2 mg/dL (8.5-10.1)
[2021-05-16 08:03] LABS: BLOOD UREA NITROGEN 20.6 mg/dL (7-18)
[2021-05-16 08:06] LABS: CREATININE 1.7 mg/dL (0.55-1.3)
[2021-05-16] MEDS: POLYETHYLENE GLYCOL (HEALTHYLAX) 3350 17 GM PACKET PO SCH (09:43)
[2021-05-16] MEDS: amLODIPine BESYLATE 5 MG TABLET (FP) PO SCH (09:44)
[2021-05-16] MEDS ORDERED: ACETAMINOPHEN 1000 MG/100 ML BAG IVPB ONE (13:15)
[2021-05-16 14:20] LABS: URINE APPEARANCE CLEAR; URINE BILIRUBIN NEGATIVE (NEGATIVE); URINE COLOR YELLOW; URINE GLUCOSE (UA) NEGATIVE (NEGATIVE); URINE KETONE NEGATIVE (NEGATIVE); URINE LEUK ESTERASE NEGATIVE (NEGATIVE); URINE NITRITE NEGATIVE (NEGATIVE); URINE PROTEIN NEGATIVE (NEGATIVE); URINE UROBILINOGEN 0.2 mg/dL (0.2-1.0)
[2021-05-17] MEDS ORDERED: DEXTROSE 5%-WATER - 50 ML IVPB ONE ×2 (01:13→09:52)
[2021-05-17] MEDS ORDERED: PIPERACILLIN/TAZOBACTAM 3.375 GM VIAL IVPB ONE ×2 (01:13→09:52)
[2021-05-17] MEDS: PIPERACILLIN/TAZOB 3.375 GM 3.375 GM in DEXTROSE 5%-WATER - 50 ML IVPB SCH ×2 (02:05→09:56)
[2021-05-17] MEDS: LACTATED RINGERS SOLUTION 1,000 ML/1,000 ML INFUS.BAG IV SCH ×3 (02:13→16:32)
[2021-05-17] MEDS: SIMETHICONE 80 MG TAB.CHEW (FP) PO SCH ×2 (06:18→14:06)
[2021-05-17] MEDS: INSULIN SLIDING SCALE (NOVOLOG) 1 VIAL SQ SCH ×3 (06:19→16:33)
[2021-05-17] MEDS: POLYETHYLENE GLYCOL (HEALTHYLAX) 3350 17 GM PACKET PO SCH ×2 (09:55→10:03)
[2021-05-17] MEDS: amLODIPine BESYLATE 5 MG TABLET (FP) PO SCH (09:56)
[2021-05-17] MEDS ORDERED: INSULIN (NOVOLOG) ASPART 100 UNITS/ML 10ML VIAL ONE (11:31)
[2021-05-17 12:26] LABS: HEMATOCRIT 41.6 % (35.4-49); MCH 30.4 pg (25.7-33.7); MCHC 33.6 g/dl (32.0-35.9); MEAN CELL VOLUME 90.6 fl (80-96); MEAN PLT VOLUME 8.4 fl (7.5-11.1); PLATELET COUNT 422 10^3/uL (134-434); RBC 4.59 M/mm3 (4.00-5.60); RDW 14.1 % (11.9-15.9); WHITE BLOOD COUNT 13.6 K/mm3 (4.0-10.0)
[2021-05-17 12:29] LABS: CALCIUM 9.4 mg/dL (8.5-10.1)
[2021-05-17 12:30] LABS: BLOOD UREA NITROGEN 20.7 mg/dL (7-18)
[2021-05-17 12:33] LABS: CREATININE 1.6 mg/dL (0.55-1.3)
[2021-05-17 13:28] LABS: PLATELET ESTIMATE ADEQUATE
[2021-05-17 14:17] VITALS: BP 142/87
[2021-05-17 16:28] VITALS: PULSE 90; TEMP 98.2
== END 2021-05-17 16:35 | disposition home or self-care (01) | DRG 221 ==
LOC: J2C 04:42 → EDSTATUS 10:00 → JICU 20:01 → J8W 05-05 18:54
PROVIDERS: ADMIT Internal Medicine; ATTEND Internal Medicine
PROC: 0DNW0ZZ Release Peritoneum, Open Approach (ICD-10-PCS; 2021-05-03)
PROC: 0DBE0ZZ Excision of Large Intestine, Open Approach (ICD-10-PCS; principal; 2021-05-03 10:00)
PROC: 0WQF0ZZ Repair Abdominal Wall, Open Approach (ICD-10-PCS; 2021-05-06)
DX: K57.20 Diverticulitis of large intestine with perforation and abscess without bleeding (principal); T81.31XA Disruption of external operation (surgical) wound, not elsewhere classified, initial encounter; Z68.41 Body mass index [BMI] 40.0-44.9, adult; D68.9 Coagulation defect, unspecified; N17.9 Acute kidney failure, unspecified; K56.7 Ileus, unspecified; N13.30 Unspecified hydronephrosis; K91.89 Other postprocedural complications and disorders of digestive system; E66.01 Morbid (severe) obesity due to excess calories; K66.0 Peritoneal adhesions (postprocedural) (postinfection); I10 Essential (primary) hypertension; E11.22 Type 2 diabetes mellitus with diabetic chronic kidney disease; N18.9 Chronic kidney disease, unspecified; G47.33 Obstructive sleep apnea (adult) (pediatric); D72.829 Elevated white blood cell count, unspecified; Y83.9 Surgical procedure, unspecified as the cause of abnormal reaction of the patient, or of later complication, without mention of misadventure at the time of the procedure; I12.9 Hypertensive chronic kidney disease with stage 1 through stage 4 chronic kidney disease, or unspecified chronic kidney disease; I95.9 Hypotension, unspecified
CPT/HCPCS: 36415; 71045-TC-FY; 71275-TC; 74176-TC; 74177-TC; 76775-TC; 80048; 80053; 80061; 81003; 82436; 82550; 82570; 82962; 83036; 83735; 83880; 84100; 84133; 84300; 84439; 84443; 84484; 84540; 85025; 85027; 86038; 86140; 86850; 86900; 86901; 87086; 88307-TC; 93005; 93010; 93306-TC; 94760; 97116-GP; 97161-GP; J1644; Q9967

== ENCOUNTER 2022-02-13 15:15 | Emergency (ER) | payer OTHER ==
[2022-02-13 15:35] VITALS: PULSE 84; RESP 17; TEMP 97.6; BMI 42.3
[2022-02-13] MEDS ORDERED: OXYMETAZOLINE 0.05% NASAL SOLUTION 15 ML BOTTLE NS ONE (16:33)
[2022-02-13] MEDS ORDERED: amLODIPine BESYLATE 10 MG TABLET (FP) PO ONE (17:13)
[2022-02-13] MEDS ORDERED: amLODIPine BESYLATE 10 MG TABLET (FP) ONE (17:28)
[2022-02-13 18:23] VITALS: BP 158/98
== END 2022-02-13 18:23 | disposition home or self-care (01) ==
LOC: JER 15:15
DX: R04.0 Epistaxis (principal)
CPT/HCPCS: 99283-25

== ENCOUNTER 2022-03-10 21:25 | Emergency (ER) | payer OTHER ==
[2022-03-10 21:41] VITALS: PULSE 96; RESP 18; TEMP 98.5; BMI 41.5
[2022-03-10 22:16] VITALS: BP 157/107
[2022-03-10] MEDS ORDERED: amLODIPine BESYLATE 10 MG TABLET (FP) PO ONE (22:22)
[2022-03-10] MEDS ORDERED: amLODIPine BESYLATE 5 MG TABLET (FP) ONE (22:23)
== END 2022-03-10 22:53 | disposition home or self-care (01) ==
LOC: FER 21:25
DX: I10 Essential (primary) hypertension (principal)
CPT/HCPCS: 93005; 99283-25

== ENCOUNTER 2023-09-28 16:52 | Emergency (ER) | payer SELFPAY ==
[2023-09-28 16:58] VITALS: BP 154/100; PULSE 87; RESP 18; TEMP 98.3; BMI 37.3
[2023-09-28] MEDS: SODIUM CHLORIDE 0.9% 500 ML INFUS.BAG IV ONE (18:21)
[2023-09-28 18:40] LABS: VENOUS BASE EXCESS 5.1 mmol/L (-2-2); VENOUS O2 SATURATION 69.2 % (70-80); VENOUS PCO2 53.3 mmHg (38-52); VENOUS PH 7.396 (7.310-7.410)
[2023-09-28 18:56] LABS: BASO % 0.5 % (0-2.0); EOS % 0.1 % (0-4.5); HEMATOCRIT 53.9 % (35.4-49); LYMPH % 18.3 % (8-40); MCH 30.3 pg (25.7-33.7); MCHC 33.3 g/dl (32.0-35.9); MEAN CELL VOLUME 91.1 fl (80-96); MEAN PLT VOLUME 9.5 fl (7.5-11.1); MONO % 6.6 % (3.8-10.2); NEUT % 74.5 % (42.8-82.8); PLATELET COUNT 357 10^3/uL (134-434); RBC 5.92 M/mm3 (4.00-5.60); RDW 14.9 % (11.9-15.9); WHITE BLOOD COUNT 14.9 K/mm3 (4.0-10.0)
[2023-09-28 19:14] LABS: POTASSIUM 4.5 mmol/L (3.5-5.1)
[2023-09-28 19:22] LABS: ALBUMIN 3.8 g/dl (3.4-5.0); BLOOD UREA NITROGEN 18.5 mg/dL (7-18); CALCIUM 9.6 mg/dL (8.5-10.1)
[2023-09-28 19:25] LABS: CREATININE 1.2 mg/dL (0.55-1.3)
[2023-09-28 19:27] LABS: BILIRUBIN,TOTAL 0.5 mg/dL (0.2-1); TOT PROT 7.8 g/dl (6.4-8.2)
== END 2023-09-28 19:46 | disposition home or self-care (01) ==
LOC: JER 16:52
DX: G47.30 Sleep apnea, unspecified (principal); R42 Dizziness and giddiness; R11.2 Nausea with vomiting, unspecified; R40.0 Somnolence; R53.83 Other fatigue
CPT/HCPCS: 36415; 80053; 82803; 85025; 93005; 93010; 99284-25